=== PATIENT | female | born 1965 | race Caucasian/White ===

== ENCOUNTER 2022-04-27 08:17 | Day surgery (SDC) | payer MEDICARE, MEDICAID ==
[~2022-04-27 08:17] MED LIST: Lactated Ringers 1,000 ML IV SCH; Sodium Chloride 0.9% 10 ML Syringe FLUSH PRN
[2022-04-27] MEDS ORDERED: Propofol 200 MG/20 ML SDV ONE ×3 (10:35→11:10)
[2022-04-27] MEDS ORDERED: fentaNYL 100 MCG/2 ML SDV ONE (10:35)
== END 2022-04-27 13:00 | disposition home or self-care (01) ==
LOC: VM.SDS 08:17
PROVIDERS: ATTEND Family Medicine
DX: D12.0 Benign neoplasm of cecum (principal); K57.30 Diverticulosis of large intestine without perforation or abscess without bleeding; K21.9 Gastro-esophageal reflux disease without esophagitis; M85.80 Other specified disorders of bone density and structure, unspecified site; F31.9 Bipolar disorder, unspecified; M1A.9XX0 Chronic gout, unspecified, without tophus (tophi); J44.9 Chronic obstructive pulmonary disease, unspecified; E66.9 Obesity, unspecified; R73.01 Impaired fasting glucose; F32.A Depression, unspecified; Z88.8 Allergy status to other drugs, medicaments and biological substances; Z88.1 Allergy status to other antibiotic agents; Z98.890 Other specified postprocedural states; Z90.710 Acquired absence of both cervix and uterus; Z79.899 Other long term (current) drug therapy; Z87.891 Personal history of nicotine dependence; Z68.41 Body mass index [BMI] 40.0-44.9, adult
CPT/HCPCS: 00811; 88305; J2704; J3010; J7120